=== PATIENT | female | born 1985 | race Caucasian/White ===

== ENCOUNTER 2021-07-15 20:10 | Emergency (ER) | payer OTHER ==
[~2021-07-15] VITALS: Ht 157.5 cm; Wt 63.5 kg
[2021-07-15 23:21] LABS: URINE BILIRUBIN NEGATIVE (Negative); URINE BLOOD 2+ (Negative); URINE CLARITY SL HAZY; URINE COLOR YELLOW; URINE GLUCOSE-RANDOM NEGATIVE (Negative); URINE KETONES NEGATIVE (Negative); URINE LEUKOCYTES-REFLEX NEGATIVE (Negative); URINE NITRITE-REFLEX NEGATIVE (Negative); URINE PROTEIN NEGATIVE (Negative); URINE SPECIFIC GRAVITY 1.025 (1.005-1.030); URINE UROBILINOGEN 0.2 E.U./dl (0.2-1.0)
[2021-07-15 23:23] LABS: ABSOLUTE BASOPHILS 0.1 thou/uL (0.0-0.2); ABSOLUTE EOSINOPHILS 0.3 thou/uL (0.0-0.7); ABSOLUTE LYMPHOCYTES 3.3 thou/uL (0.8-5.3); ABSOLUTE MONOCYTES 0.5 thou/uL (0.0-1.2); ABSOLUTE NEUTROPHILS 2.9 thou/uL (1.6-8.1); BASOPHILS 0.8 %; EOSINOPHILS 4.1 %; HEMATOCRIT 37.5 % (37.0-47.0); HEMOGLOBIN 12.8 gm/dL (12.0-15.0); LYMPHOCYTES 46.3 %; MCH 29.2 pg (26.0-34.0); MCV 85.9 fL (80.0-100.0); MONOCYTES 7.3 %; MPV 7.6 fl. (7.2-11.1); NUCLEATED RBCS 0 /100WBC; PLATELET COUNT* 291 thou/uL (150-400); POLYS 41.5 %; RBC 4.37 mil/uL (4.20-5.00); RDW-CV 12.5 % (10.5-14.5); WBC 7.1 thou/uL (4.0-11.0)
[2021-07-15 23:27] LABS: SQUAMOUS >10 Many /LPF (0-3); TRANSITIONAL EPITHEL CELL 0-3 Few /LPF (None Seen); URINE WBC-REFLEX None Seen /HPF (0-5)
[2021-07-15 23:28] LABS: BACTERIA-REFLEX >30 Many /HPF (None Seen); CASTS None Seen /LPF (None Seen); CRYSTALS None Seen /LPF (None Seen); MUCUS 4-6 Moderate strn/LPF (None Seen)
[2021-07-15 23:30] LABS: CALCIUM 8.9 mg/dL (8.5-10.1); CREATININE 0.6 mg/dL (0.6-1.3); POTASSIUM 3.6 mmol/L (3.5-5.1)
[2021-07-16 00:17] VITALS: BP 110/67
--- NOTE | 2021-07-16 07:53 | EKG ---
[place] [address] ELECTROCARDIOGRAM REPORT Name: AYAD BENTON Room: [facility]#: [id number] Admission: 07/15/21 Attend Phys: Discharge: 07/16/21 Date of : 89 Date of Service: 07/15/212033 Report #: [id number] THIS REPORT FOR: //name// [facility] ED Test Date: 2021-07-15 Test Time: 20:34:57 Pat Name: AYAD BENTON Department: Room: Gender: [employer]al [employer]: : [id number] Requested By: Jessica Lamb Order Number: [id number] MD: Marvel Boateng Measurements Intervals [place] Rate: 94 P: 62 IL: 150 QRS: 50 QRSD: 88 T: -2 QT: 353 QTc: 442 Interpretive Statements Sinus rhythm Inferior Q waves Baseline wander in lead(s) II,III,aVR,aVL,aVF,V1,V2,V3,V5 No previous ECG available for comparison Electronically Signed On 07-16-2021 7:53:40 CDT by Marvel Boateng [email or web address] <ELECTRONICALLY SIGNED> By: Marvel Boateng MD, FAC 07/16/21 [id number] [phone] Marvel Boateng MD, [facility] /EPI
== END 2021-07-16 00:17 | disposition home or self-care (01) ==
LOC: M.ERS 20:10
PROVIDERS: Emergency Medicine
DX: R00.2 Palpitations (principal); I47.1 Supraventricular tachycardia